=== PATIENT | female | born 1945 | race Caucasian/White ===

== ENCOUNTER → 2017-01-19 16:41 | Outpatient (CLI) | payer MEDICARE, OTHER ==
[~2017-01-19 16:41] MED LIST: FLUTICASONE PRO16 GM NS; LANTUS SOL100 UNIT/1 SQ; NORVASC2.5 MG PO; ZOFRAN ODT4 MG/UDTAB PO
== END | disposition home or self-care (01) ==
LOC: D.MAMMO 11:45
DX: Z12.31 Encounter for screening mammogram for malignant neoplasm of breast (principal)

== ENCOUNTER 2019-09-05 09:00 | Outpatient (CLI) | payer MEDICARE, OTHER | END 2019-09-05 10:00 | disposition home or self-care (01) | LOC: D.MAMMO 09:00 | PROVIDERS: ATTEND Family Medicine | DX: Z12.31 Encounter for screening mammogram for malignant neoplasm of breast (principal) ==

== ENCOUNTER → 2019-10-09 11:00 | Outpatient (CLI) | payer MEDICARE, OTHER | END | disposition home or self-care (01) | LOC: D.MAMMO 08:30 | PROVIDERS: ATTEND Family Medicine | DX: R92.8 Other abnormal and inconclusive findings on diagnostic imaging of breast (principal) ==

== ENCOUNTER 2020-03-24 05:40 | Outpatient (CLI) | payer MEDICARE, OTHER ==
[~2020-03-24] VITALS: Ht 157.5 cm; Wt 67.7 kg
[2020-03-24 06:09] LABS: ANION GAP 10.4 mmol/L (8-16); CALCIUM 10.1 mg/dL (8.5-10.1); CARBON DIOXIDE 31.7 mmol/L (21.0-32.0); CREATININE - SERUM 1.2 mg/dL (0.6-1.3); POTASSIUM - SERUM 4.1 mmol/L (3.5-5.1)
[2020-03-24] MEDS ORDERED: NOVOLOG100 UNIT/1 SC (06:23)
[2020-03-24] MEDS ORDERED: COZAAR25 MG PO (06:24)
[2020-03-24 06:30] VITALS: BP 131/45; Ht 157.5 cm; Wt 67.7 kg
[2020-03-24] MEDS ORDERED: TRESIBA FL100 UNIT/1 SC (06:38)
[2020-03-24 06:55] LABS: INR 1.2 (0.85-1.17); PROTIME 15.1 SECONDS (11.6-15.0)
[2020-03-24 07:22] LABS: APTT 31.8 SECONDS (22.8-39.4)
[2020-03-24 07:40] LABS: HEMATOCRIT 35.6 % (36.0-48.0); HEMOGLOBIN 10.3 g/dL (12-16); LYMPHOCYTES 23.4 % (15-50); MCH 22.5 pg (26.0-34.0); MCHC 28.9 g/dL (31.0-37.0); MCV 77.7 fL (80.0-100.0); MEAN PLATELET VOLUME 9.2 fL (7.4-10.4); NEUTROPHILS 68.7 % (40-80); RBC 4.58 10x6/uL (4.00-5.40); RDW 16.8 % (11.5-14.5); WBC 10.1 10x3/uL (4.8-10.8)
[2020-03-24 07:42] LABS: PLATELET COUNT 561 10x3/uL (130-400)
--- NOTE | 2020-03-24 13:20 | NUR ---
PATIENT AMBULATING AROUND ROOM WITHOUT UNSTEADINESS OR DIZZINESS. VOIDED IN TOILET WITHOUT DIFFICULTY. DRESSING ON BACK C/D/I. DISCHARGE INSTRUCTIONS REVIEWED WITH PATIENT, DISCHARGED HOME VIA WHEELCHAIR TO PRIVATE VEHICLE WITH SPOUSE
== END 2020-03-24 13:20 | disposition home or self-care (01) ==
LOC: D.SP 05:40 → D.RAD 08:00 → D.SP 13:20
PROVIDERS: General Practice; ATTEND Family Medicine
DX: N28.89 Other specified disorders of kidney and ureter (principal); E11.9 Type 2 diabetes mellitus without complications; I10 Essential (primary) hypertension; Z79.84 Long term (current) use of oral hypoglycemic drugs

== ENCOUNTER 2020-04-09 07:34 | Outpatient (CLI) | payer MEDICARE, OTHER ==
[~2020-04-09] VITALS: Ht 157.5 cm; Wt 66.8 kg
[~2020-04-09 07:34] MED LIST changes: +COZAAR25 MG PO; +NOVOLOG100 UNIT/1 SC; +TRESIBA FL100 UNIT/1 SC
[2020-04-09 08:20] LABS: ANION GAP 10.4 mmol/L (8-16); CALCIUM 9.8 mg/dL (8.5-10.1); CARBON DIOXIDE 30.4 mmol/L (21.0-32.0); CREATININE - SERUM 1.3 mg/dL (0.6-1.3); POTASSIUM - SERUM 3.8 mmol/L (3.5-5.1)
[2020-04-09 08:25] LABS: BASOPHILS 0.2 % (0-2); EOSINOPHILS 0.6 % (0-7); HEMATOCRIT 34.4 % (36.0-48.0); HEMOGLOBIN 9.9 g/dL (12-16); IMMATURE GRANULOCYTES 0.3 % (0-5); LYMPHOCYTES 27.1 % (15-50); MCH 22.7 pg (26.0-34.0); MCHC 28.8 g/dL (31.0-37.0); MCV 78.7 fL (80.0-100.0); MEAN PLATELET VOLUME 8.7 fL (7.4-10.4); MONOCYTES 7.8 % (2-11); PLATELET COUNT 515 10x3/uL (130-400); RBC 4.37 10x6/uL (4.00-5.40); RDW 18.4 % (11.5-14.5); WBC 10.5 10x3/uL (4.8-10.8)
[2020-04-09 08:31] LABS: INR 1.2 (0.85-1.17); PROTIME 15.1 SECONDS (11.6-15.0)
[2020-04-09] MEDS ORDERED: GLUCOPHAGE500 MG PO (08:38)
[2020-04-09] MEDS ORDERED: HYDROCHLOROTH12.5 M1 PO (08:39)
[2020-04-09] MEDS ORDERED: CALCIUM 250+D T1 TAB PO (08:39)
[2020-04-09 08:40] VITALS: Ht 157.5 cm; Wt 66.8 kg
[2020-04-09] MEDS ORDERED: VITAMIN D1000 UNIT PO (08:40)
== END 2020-04-09 16:00 | disposition home or self-care (01) ==
LOC: D.SP 07:34 → D.CT 11:00 → D.SP 11:00
PROVIDERS: Specialist; ATTEND Internal Medicine Medical Oncology
DX: C64.2 Malignant neoplasm of left kidney, except renal pelvis (principal); D50.9 Iron deficiency anemia, unspecified; C79.89 Secondary malignant neoplasm of other specified sites; E11.9 Type 2 diabetes mellitus without complications; I10 Essential (primary) hypertension; E78.5 Hyperlipidemia, unspecified; Z79.84 Long term (current) use of oral hypoglycemic drugs